=== PATIENT | female | born 1990 | race Caucasian/White ===

== ENCOUNTER 2017-04-20 15:23 | Emergency (ER) | payer OTHER ==
[~2017-04-20] VITALS: Ht 165.1 cm; Wt 67.0 kg
[2017-04-20] MEDS ORDERED: SODIUM CHLORIDE 0.9% 1,000ML IVBOLUS ONE (16:00)
[2017-04-20] MEDS ORDERED: SODIUM CHLORIDE FLUSH 10ML SYR IVF ONE (16:00)
[2017-04-20 16:06] LABS: HEMATOCRIT 37.4 % (34.6-47.8); HEMOGLOBIN 12.9 g/dL (11.7-16.4); WHITE BLOOD COUNT 7.7 x10^3/uL (3.4-10)
[2017-04-20] MEDS ORDERED: PREN1TAB62 PO (16:06)
[2017-04-20 16:18] LABS: BLOOD UREA NITROGEN 13 mg/dL (7-18)
[2017-04-20 17:20] VITALS: BP 113/57
== END 2017-04-20 17:22 | disposition home or self-care (01) ==
LOC: ED 17:10
DX: O26.891 Other specified pregnancy related conditions, first trimester (principal); R55 Syncope and collapse; Z3A.14 14 weeks gestation of pregnancy
CPT/HCPCS: 36415; 80048; 82040; 83735; 85025; 93005; 96360; 99285; J7030